=== PATIENT | female | born 1995 | race Caucasian/White ===

== ENCOUNTER 2025-07-13 22:59 | Emergency (ER) | payer BC, SELFPAY ==
[2025-07-13 23:17] VITALS: BP 150/95
[2025-07-13 23:46] LABS: Hematocrit 40.3 % (37.0-47.0); Hemoglobin 13.6 g/dL (12.0-16.0); Mean Corp Hgb Conc. 33.7 g/dL (33.0-37.0); Mean Corpuscular Volume 87.8 fL (81.0-99.0); Nucleated Red Blood Cells % 0 %; Platelet Count 241 10^3/uL (130-400); Red Cell Dist. Width 11.8 % (11.5-14.5)
[2025-07-14 00:07] LABS: ALT (SGPT) 25 U/L (0-35); AST (SGOT) 23 U/L (14-36); Albumin 4.6 g/dl (3.5-5.0); Alkaline Phosphatase 64 U/L (38-126); Blood Urea Nitrogen 11 mg/dl (7-17); Calcium 9.6 mg/dl (8.4-10.2); Carbon Dioxide 27 mmol/L (22-30); Chloride 103 mmol/L (98-107); Glucose 123 mg/dl (70-99); Potassium 4.1 mmol/L (3.5-5.1); Sodium 136 mmol/L (135-145); Total Protein 7.8 g/dl (6.3-8.2); eGFR > 60.00
[2025-07-14 02:39] VITALS: BMI 24.8
[2025-07-14 02:40] VITALS: BP 111/80
--- NOTE | 2025-07-14 04:01 | ED.GENMED ---
History of Present Illness
General
Chief Complaint: Headache
Source: patient and spouse
Exam Limitations: none
Time Seen by Provider: 07/14/25 03:11
Nursing documentation reviewed up to this point in time: agreed with
History of Present Illness
History of Present Illness:
Note:
CHIEF COMPLAINT(S)
Migraine headache and associated symptoms.
HISTORY OF PRESENT ILLNESS
The patient is a 29-year-old female who presents with a migraine headache. She reports taking her prescribed medication, which she refers to as 'Allotryptin' (unclear if this refers to a specific triptan drug), with directions indicating it could be
taken every two hours. After taking the medication, the patient experienced dizziness, cold sweats, atypical nausea, and a sensation described as 'a high,' which she found abnormal. These symptoms were uncharacteristic for her usual migraines,
causing her distress and a possible panic attack. During the episode, she also noticed an absence of her usual urinary frequency post-medication. After consuming water, she began urinating frequently, which made her feel better. Currently, her
headache has resolved to a dull ache, but she remains nervous about taking further medication due to fear of adverse reactions. The patient denies experiencing blurred vision, typical headache, and states nausea has improved since the initial onset.
PHYSICAL EXAM
General: Alert, no acute distress.
Skin: Warm, dry.
Head: Normocephalic, atraumatic.
Neck: Supple, trachea midline.
Eye, Ears, Nose, Mouth, and Throat: Oral mucosa moist.
Cardiovascular: Normal peripheral perfusion, no edema.
Respiratory: Respirations are non-labored.
Gastrointestinal: Abdomen nondistended.
Back: Normal range of motion, normal alignment.
Musculoskeletal: Normal range of motion, normal strength.
Neurological: Alert and oriented to person, place, time, and situation, no focal neurological deficit observed.
Psychiatric: Cooperative, appropriate mood & affect.
PROBLEM LIST
- Acute migraine headache with atypical symptoms.
- Panic attack.
SOCIAL HISTORY
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
PLAN
- Provide acetaminophen for symptom management.
- Monitor for recurrence of symptoms with migraine medication use.
- No prescriptions were provided today.
- Consider discussing with the patients regular physician, Dr. Simon, about medication management.
DIFFERENTIAL DIAGNOSIS
The Differential Diagnosis includes, in no particular order and is not limited to:
- Migraine headache with aura
- Vasovagal syncope
- Acute anxiety or panic attack
- Adverse effect of triptan medication
- Serotonin syndrome
- Dehydration
- Hypoglycemia
- Vestibular migraine
- Medication overuse headache
- Postural orthostatic tachycardia syndrome (POTS)
Disposition:
SUMMARY OF ENCOUNTER
A 29-year-old female presented to the emergency department with a history of migraine headache. She had taken triptan medication initially without relief, and after a subsequent dose, she experienced symptoms including a panic attack, tachycardia,
and anxiety. Upon arrival at the emergency department, most of these symptoms had resolved, and she reported that her headache had diminished to a very mild level. The patient expressed a desire to be discharged home.
DISPOSITION
Discharge.
PLAN
The patient is to follow up with her neurologist, Dr. Simon at [facility], for ongoing management of her migraine headaches.
MEDICATION RECONCILIATION
The patient had taken triptan medication prior to her visit to the emergency department.
MEDICAL DECISION MAKING
-Complexity of Data Reviewed: Acute migraine headache with atypical symptoms. Differential diagnosis considered includes migraine headache with aura, vasovagal syncope, acute anxiety or panic attack, adverse effect of triptan medication, serotonin
syndrome, dehydration, hypoglycemia, vestibular migraine, medication overuse headache, and postural orthostatic tachycardia syndrome (POTS).
-Risk: Consideration of Admission/Observation: Escalation of care including admission/observation was considered given the complexity and risk of the patients presenting complaint, exam findings, and/or their underlying comorbidities. However,
ultimately, I feel the patient is safe for outpatient management with close follow-up. Reasoning: Work-up reassuring, does not reveal any acute life/organ threatening processes, patients symptoms well controlled upon reevaluation, reexamination is
reassuring, vitals are stable, patient agreeable with discharge, reliable for follow-up.
DIAGNOSIS
Acute migraine headache, unspecified, with atypical symptoms (ICD-10: G43.909).
Panic attack (ICD-10: F41.0).
Past History
Social History
Tobacco: Non-smoker
Alcohol: None
Drug: None
Phy Exam
Physical Exam
Physical Exam:
.
Course
Orders/Labs/Results
Orders:
Orders
07/13/25 23:30
Complete Blood Count/With Diff Urgent
Comprehensive Metabolic Panel Urgent
07/14/25 03:59
Acetaminophen [Tylenol] 650 mg PO NOW STA
Abnormal Lab Results
07/13/25
23:30
Absolute Neuts (auto) 6.8 H 10^3/uL
(1.4-6.5)
Neutrophils % 75.3 H %
(42.2-75.2)
Lymphocytes % 16.4 L %
(20.5-51.1)
Glucose 123 H mg/dl
(70-99)
07/13/25 23:30
07/13/25 23:30
Vital Signs
Initial and Last Documented VS:
Initial Vital Signs
Temp Pulse Resp BP Pulse Ox
98.6 F 119 18 150/95 98
07/13/25 23:17 07/13/25 23:17 07/13/25 23:17 07/13/25 23:17 07/13/25 23:17
Last Documented Vital Signs
Temp Pulse Resp BP Pulse Ox
99.1 F 85 18 111/80 100
07/14/25 02:40 07/14/25 02:40 07/14/25 02:40 07/14/25 02:40 07/14/25 04:04
*Pulse Oximetry
SaO2: 100
Oxygen Mode of Delivery: Room air
Patient hypoxic: no
*Critical Care Note
Total Time (30-74mins, 75-104mins- exclusive of procedures): Not Applicable
ED Attending Note
-
Portions of this chart may have been created with voice recognition software.� Occasional wrong word or��sound alike� substitutions may have occurred due to the inherent limitations of voice recognition software.
Discharge Plan
Departure
Patient Disposition: Home (Routine Discharge)
Date of Disposition: 07/14/25
Time of Disposition: 04:02
Patient with high blood pressure during this ER visit?: Yes
Condition: Good
Discharge Problem:
Migraine, Medication reaction
Instructions: Migraines (DC), Headache, Adult (DC), BLOOD PRESSURE
Prescriptions:
No Action
eletriptan 40 mg Tablet
40 mg PO ONCE PRN (Reason: migraines)
Rx Instructions:
can take a second dose if needed
Referrals:
Nat Valadez PA [Family Provider, Family Practice]
Abdi Simon MD [Active, Neurology]
Activity Restrictions/Additional Instructions:
Thank You for choosing [facility].
It was a pleasure meeting you and taking part in your care. We hope for your continued healing and wellness.
Please read discharge instructions in their entirety. However, they are for general education and may not describe your exact diagnosis at discharge. Information on your ER visit and medical conditions were discussed with you along with appropriate
follow up information...
If indicated, please take your medications as instructed and indicated on discharge paperwork.
Please schedule a follow up appointment as directed. Call to schedule an appointment
Please return to the emergency department with ANY change in, persisting, or worsening of symptoms. If any of your symptoms do not improve, or persist, or become more severe within 6-12 hours, please return to the emergency department for further
care.
Please return to the emergency department if you develop a headache, neck pain/stiffness, fever greater than 100.4F, chest pain, shortness of breath, persistent nausea, vomiting, slurred speech, difficulty walking, numbness/tingling, weakness, signs
of infection or any other symptoms that are worrisome to you.
If you have any questions or concerns please do not hesitate to call the Hospital at or E-mail me directly at [email or web address]
Interventions
Interventions:
*Risk Screen - Suicide Last Done: 07/13/25 23:24
*General Assessment Last Done: 07/14/25 02:42
*Neglect/Abuse Screening Last Done: 07/13/25 23:24
*ED- Fall Risk Assessment Last Done: 07/14/25 02:42
*ED COVID-19 Vaccine History Last Done: 07/14/25 02:42
*Nursing Disposition Last Done: 07/14/25 04:15
ED- Neurological Assessment Last Done: 07/14/25 03:00
Discharge Date and Time
Discharge Date/Time: 07/14/25 04:16
Print Language: SRI LANKAN
[2025-07-14] MEDS: TYLENOL 650 MG PO (04:13)
== END 2025-07-14 04:16 | disposition home or self-care (01) ==
LOC: EMR 22:59
PROVIDERS: EMERGENCY PHYSICIAN Student in an Organized Health Care Education/Training Program; FAMILY PHYSICIAN Physician Assistant Medical
DX: G43.909 Migraine, unspecified, not intractable, without status migrainosus (principal); T50.905A Adverse effect of unspecified drugs, medicaments and biological substances, initial encounter; Y92.9 Unspecified place or not applicable; F41.0 Panic disorder [episodic paroxysmal anxiety]
CPT/HCPCS: 99283; 80053; 85025